=== PATIENT | male | born 1975 | race Two or more races ===

== ENCOUNTER 2019-04-14 13:00 | Outpatient (CLI) | payer BC | END 2019-04-14 15:00 | disposition home or self-care (01) | LOC: LAB 13:00 | DX: R10.9 Unspecified abdominal pain (principal) | CPT/HCPCS: 83013 ==

== ENCOUNTER 2019-04-23 06:49 | Day surgery (SDC) | payer BC ==
[~2019-04-23] VITALS: Ht 175.3 cm; Wt 79.4 kg
[2019-04-23] VITALS (10 sets, daily range): BP systolic 96–122; BP diastolic 56–77
[2019-04-23] MEDS ORDERED: Propofol 200mg/20ml IV ONE (06:50)
[2019-04-23] MEDS ORDERED: Propofol 1,000mg/ 100ml btl IV ONE (06:50)
[2019-04-23] MEDS ORDERED: NS 500ML ONE (06:50)
[2019-04-23] MEDS ORDERED: Lidocaine 1% MPF 10mg/ml 5ml ONE ×2 (06:50)
[2019-04-23] MEDS ORDERED: Midazolam 2mg/2ml Inj ONE (06:50)
--- NOTE | 2019-04-23 07:15 | NUR ---
NURSE NOTES: IV (R Hand 22g) started by Mary Alarcon RN
[2019-04-23] MEDS ORDERED: NKM (07:35)
--- NOTE | 2019-04-23 08:25 | Anethesia Preoperative Eval ---
Anesthesia Pre-op PMH/ROS General Date of Evaluation: Apr 23, 2019 Time of Evaluation: 08:22 Anesthesiologist: Briana ASA Score: ASA 2 Mallampati Score Class I : Soft palate, uvula, fauces, pillars visible Class II: Soft palate, uvula, fauces visible Class III: Soft palate, base of uvula visible Class IV: Only hard plate visible Mallampati Classification: Class II Surgeon: Oscar Diagnosis: blood in stool Surgical Procedure: EGD/ Colon Anesthesia History: none Family History: no anesthesia problems Allergies: Coded Allergies: No Known Allergies (Unverified , 04/23/19) Medications: see eMAR Patient NPO?: Yes NPO Date: Apr 22, 2019 NPO Time: 21:00 Past Medical History Cardiovascular: Denies: HTN, CAD, HI, valve dz, arrhythmia, other Pulmonary: Denies: asthma, COPD, HOWIE, other Gastrointestinal/Genitourinary: Reports: GERD, other - hemorrhoids, hematochezia Neurologic/Psychiatric: Denies: dementia, CVA, depression/anxiety, TIA, other Endocrine: Denies: DM, hypothyroidism, steroids, other HEENT: Denies: cataract (L), cataract (R), glaucoma, [place] (L), [place] (R), other Hematology/Immune: Denies: anemia, DVT, bleeding disorder, other Musculoskeletal/Integumentary: Denies: OA, RA, DJD, DDD, edema, other Other: obesity PSxH Narrative: abdominal surgery - undescended testicular x 3 surgery Anesthesia Pre-op Phys. Exam Physician Exam Last Vital Signs Date Time Temp Pulse Resp B/P (MAP) Pulse Ox O2 Delivery O2 Flow Rate FiO2 04/23/19 07:31 Room Air 04/23/19 07:28 97.1 56 18 105/56 99 Constitutional: NAD Neurologic: CN 2-12 intact Cardiovascular: RRR Respiratory: CTA Gastrointestinal: S/NT/ND Airway Exam Mallampati Score: Class II MO: full ROM: full Teeth: intact Dentures: no upper, no lower Anesthesia Pre-op A/P Risk Assessment & Plan Assessment: A&Ox4 Plan: MAC Status Change Before Surgery: No Pre-Antibiotics Given Within 1 Hr of Incision: No Tamara Warren CRNA Apr 23, 2019 08:25
--- NOTE | 2019-04-23 08:26 | Immediate Post-Op Evaluation ---
Immediate Post-Op Evalulation Immediate Post-Op Evalulation Procedure: EGD/Colon Date of Evaluation: Apr 23, 2019 Time of Evaluation: 09:19 IV Fluids: NSS 500 ml Blood Products: 0 Estimated Blood Loss: 0 Urinary Output: 0 Blood Pressure Systolic: 108 Blood Pressure Diastolic: 68 Pulse Rate: 80 Respiratory Rate: 18 O2 Sat by Pulse Oximetry: 100 Temperature (Fahrenheit): 97.7 Pain Score (1-10): 0 Nausea: No Vomiting: No Complications None noted Patient Status: awake, reacts, patent, none Hydration Status: adequate Given Within 1 Hr of Incision: No - none per surgeon Tamara Warren CRNA Apr 23, 2019 08:26
--- NOTE | 2019-04-23 08:26 | 48 Hour Post Anesthesia Eval ---
Post Anesthesia Evaluation Procedure: EGD/Colon Date of Evaluation: Apr 23, 2019 Time of Evaluation: 10:23 Blood Pressure Systolic: 115 0: 69 Pulse Rate: 66 Respiratory Rate: 17 Temperature (Fahrenheit): 98.2 O2 Sat by Pulse Oximetry: 100 Airway: patent Nausea: No Vomiting: No Pain Intensity: 0 Hydration Status: adequate Cardiopulmonary Status: WNL Mental Status/LOC: patient returned to baseline Post-Anesthesia Complications: none noted Follow-up care needed: patient intructions given Tamara Warren CRNA Apr 23, 2019 08:26
--- NOTE | 2019-04-23 08:34 | Pre-Procedure Note/Attestation ---
Pre-Procedure Note/Attestation Complete Prior to Procedure Planned Procedure: not applicable Procedure Narrative: colonoscopy Indications for Procedure Pre-Operative Diagnosis: rectal bleed Attestation I attest that I discussed the nature of the procedure; its benefits; risks and complications; and alternatives (and the risks and benefits of such alternatives ), prior to the procedure, with the patient (or the patient's legal solar manufacturer's representative). I attest that, if there was a reasonable possibility of needing a blood transfusion, the patient (or the patient's legal solar manufacturer's representative) was given the [facility] standardized written summary, pursuant to the Beny Azam Blood Safety Act ([place] Health and Safety Code # 1645, as amended). I attest that I re-evaluated the patient just prior to the surgery and that there has been no change in the patient's H&P, except as documented below: Azam Moore MD Apr 23, 2019 08:34
--- NOTE | 2019-04-23 08:36 | Short Stay Surgery H&P ---
History of Present Illness History of Present Illness Chief Complaint rectal bleed HPI Kathleen De Jesus is a 43 year old male who was admitted on for Blood In Stool, Abdominal Pain,Hemorroids Patient History Allergies: Coded Allergies: No Known Allergies (Unverified , 04/23/19) PAST MEDICAL HISTORY: (1) Hemorrhoids (2) GERD (gastroesophageal reflux disease) Medication History Scheduled No Known Medications* (NKM - No Known Medications*), 0 ., (Reported) Review of Systems Cardiovascular: Reports: no symptoms Respiratory: Reports: no symptoms Skeletal: Reports: no symptoms Gastrointestinal: Reports: no symptoms Genitourinary: Reports: no symptoms Neurologic: Reports: no symptoms Endocrine: Reports: no symptoms Hematologic: Reports: no symptoms Physical Exam Vital Signs Last Vital Signs Date Time Temp Pulse Resp B/P (MAP) Pulse Ox O2 Delivery O2 Flow Rate FiO2 04/23/19 07:31 Room Air 04/23/19 07:28 97.1 56 18 105/56 99 Skin: normal HENT: normal Heart: normal Lungs: normal Abdomen: normal Extremities: normal Plan Plan of Care esophagogastroduodenoscopy and colonoscopy Attestation Are the patient's medical conditions optimized for surgery? Attestation Response: yes Azam Moore MD Apr 23, 2019 08:36
--- NOTE | 2019-04-23 09:16 | Endoscopy Procedure Note ---
Endoscopy Procedure Note General Indication for Procedure: rectal bleed, GERD Procedures Performed: EGD, colonoscopy Operative Findings/Diagnosis: gastritis, colon polyp Specimen: yes Pt Tolerated Procedure Well: Yes Estimated Blood Loss: none Anesthesia Anesthesiologist: brendan Anesthesia: MAC Inserted Devices Implant(s) used?: Yes Quality Quality of Bowel Preparation: Good Did scope reach the cecum?: Yes Was there any complications?: No GI Core Measures 50 yrs or older w/o bx or poly: No 10yrs. F/U recommended: Yes If not recommended, why?: Above average risk 18 years or older w/prev. colo: No Azam Moore MD Apr 23, 2019 09:16
[2019-04-23] MEDS ORDERED: fentaNYL 100 mcg/2 mL IV PRN (09:30)
--- NOTE | 2019-04-23 16:00 | Procedure Note ---
DATE OF PROCEDURE: 04/23/2019 SURGEON: Azam Moore M.D. PROCEDURE: Colonoscopy and endoscopy with biopsy. ANESTHESIA: Per Briana ODELL. INSTRUMENT: Olympus adult flexible upper endoscope and colonoscope. INDICATION: Chronic GERD, rectal bleeding. REASON FOR PROCEDURE: The procedure, risks, benefits, and possible consequences, including hemorrhage, aspiration, perforation and infection, and alternative treatments, were explained to the patient/legal guardian by Dr. Azam Moore and the patient/legal guardian understood and accepted these risks. DESCRIPTION OF PROCEDURE: After informed consent was obtained and the patient was adequately sedated, first Olympus upper endoscope was advanced from mouth into the second portion of the duodenum and retroflexion performed in the stomach. The patient had evidence of diffuse mild gastritis. Random biopsies from antrum and body was obtained. GE junction was found to be about 37 cm from the incisors. No evidence of any esophagitis. No esophageal varices. At this time, the upper endoscope was retrieved and the patient was turned over for colonoscopy. First rectal exam was performed, which was normal. Then, the scope was advanced from the rectum into the cecum then subsequently the terminal ileum. Quality of prep was good. The patient had two polyps, both in transverse colon. One diminutive removed with cold biopsy. The other one was about 5 mm, removed with the snare polypectomy technique. The rest of the colonic examination grossly looked within normal limits. Retroflexion of rectum showed evidence of medium-sized nonbleeding internal hemorrhoids. SUMMARY OF FINDINGS: 1. Gastritis, status post biopsy. 2. Two colonic polyps removed, see above for details. 3. Internal hemorrhoids. RECOMMENDATIONS: 1. Follow up pathology. 2. Recommend repeat colonoscopy in 5 years. 3. Treat for hemorrhoids if become symptomatic. Azam Moore M.D. DR: SAMMI JOB#: [id number] CC:
== END 2019-04-23 11:00 | disposition home or self-care (01) ==
LOC: GAS 06:49
DX: K62.5 Hemorrhage of anus and rectum (principal); K21.9 Gastro-esophageal reflux disease without esophagitis; K63.5 Polyp of colon; K29.50 Unspecified chronic gastritis without bleeding; K64.8 Other hemorrhoids; E66.9 Obesity, unspecified; Z68.25 Body mass index [BMI] 25.0-25.9, adult; D12.3 Benign neoplasm of transverse colon
CPT/HCPCS: 43239; 45380; 45385; J2250; J2704; J7040; 94003; 94150